=== PATIENT | male | born 1995 | race Caucasian/White ===

== ENCOUNTER → 2022-02-02 11:14 | Outpatient (CLI) | payer OTHER, MEDICAID, SELFPAY ==
[2022-02-02 13:44] LABS: Influenza A - CEPHEID Flu A NEGATIVE (NEGATIVE); Influenza B - CEPHEID Flu B NEGATIVE (NEGATIVE)
[2022-02-02 13:59] LABS: COVID-19 CEPHEID PCR (VTM/NP) Negative (Negative)
== END ==
PROVIDERS: Visit Provider Nurse Practitioner Family
DX: R50.9 Fever, unspecified (principal); Z20.822 Contact with and (suspected) exposure to COVID-19
CPT/HCPCS: 0240U

== ENCOUNTER 2022-12-24 20:30 | Emergency (ER) | payer OTHER, MEDICAID, SELFPAY ==
[2022-12-24 20:35] VITALS: BP 120/75; PULSE 78; RESP 12; TEMP 36.1; O2SAT 100; BMI 16.2
--- NOTE | 2022-12-24 21:20 | PC.NURSE ---
Patient on the phone speaking loudly and swearing. Address patient letting him know I would be with him in a min apparently a nurse is going to finally pull her head out of her fucking ass Informed patient I could help him, but he could not speak to staff that way. At patient's bedside. how do i get the fuck out of here disconnected patient from monitor and showed him the exit. Patient ambulatory out of department independently
== END 2022-12-24 21:32 | disposition left against medical advice (07) ==
PROVIDERS: Emergency Provider Emergency Medicine
CPT/HCPCS: 99281